=== PATIENT | female | born 1965 | race Caucasian/White ===

== ENCOUNTER → 2025-03-19 08:18 | Outpatient (BNVA) | payer MEDICAID, SELFPAY | PROVIDERS: Visit Provider Emergency Medicine | DX: B34.9 Viral infection, unspecified (principal) | CPT/HCPCS: 87400; 87426 ==

== ENCOUNTER 2025-05-20 15:47 | Outpatient (CLI) | payer MEDICAID, SELFPAY ==
--- NOTE | 2025-05-20 15:57 | CT_ITS ---
WS: [id number] CT ABDOMEN AND PELVIS WITH CONTRAST HISTORY: Lower abdominal pain, unspecified TECHNIQUE: Imaging performed of the abdomen and pelvis with IV contrast. Single phase imaging of the abdomen. Coronal and sagittal reformats are submitted. All CT scans at [facility] use at least one of these dose optimization techniques: automated exposure control; mA and/or kV adjustment per patient size (includes targeted exams where dose is matched to clinical indication); or iterative reconstruction. IV CONTRAST: Omnipaque 350; 100 mL IV. Oral contrast: Yes. DLP: 623.65 mGy.cm COMPARISON: None available. Lower thorax: Lung bases are clear. Heart is normal size. Small hiatal hernia. There is a small amount of oral contrast within the hernia. Liver/biliary system: Normal size with no intrahepatic dilatation. Gallbladder: Prior cholecystectomy. Pancreas: Moderate pancreatic atrophy. Normal pancreatic duct. Normal size common bile duct through the pancreatic head. Spleen: Small atrophic spleen. History of prior splenic surgery. Adrenal glands: Normal. Right kidney: Normal. Left kidney: Normal. Aorta: Mild atherosclerosis with no aneurysm. Lymphadenopathy: None. Free fluid: None. GI tract: Stomach is distended with food material. No small bowel obstruction. Marked fecal retention in the cecum and RIGHT colon. The appendix is not definitely identified. Tortuous distal colon with very slight wall thickening distally through the sigmoid colon. No acute inflammation. Anastomotic sutures are noted near the junction of the rectum and anus. No mass or obstruction. Abdominal wall: Supraumbilical abdominal wall hernias containing fat only. Pelvis: No free fluid or adenopathy within the pelvis. Prior hysterectomy. Bones: Mild increase in lumbar lordosis. Bilateral facet joint arthritis most significant L4-5 and L5-S1. CT/CT abdomen pelvis w con* [id number] IMPRESSION: 1. Prior cholecystectomy. 2. Unremarkable appearance of the anastomosis near the junction of the rectum and anus. 3. Mild circumferential colonic wall thickening through the sigmoid. There is no obstruction or acute inflammation. 4. Prior cholecystectomy. 5. Prior hysterectomy. 6. Fat-containing supraumbilical abdominal wall hernias. 7. Atrophic spleen. History of prior splenic surgery. Part of the spleen was p robably removed. 8. Moderate pancreatic atrophy.
[2025-05-20] MEDS: iohexol 350 mg/mL 500 mL Btl (per mL) PO (17:23)
[2025-05-20] MEDS: iohexol 350 mg/mL 500 mL Btl (per mL) IV (17:23)
== END 2025-05-20 15:48 | disposition home or self-care (01) ==
LOC: RAD 15:49
PROVIDERS: PCP Family Medicine; Visit Provider Family Medicine
DX: R10.30 Lower abdominal pain, unspecified (principal); Z90.49 Acquired absence of other specified parts of digestive tract; Z98.890 Other specified postprocedural states; R93.89 Abnormal findings on diagnostic imaging of other specified body structures; Z90.710 Acquired absence of both cervix and uterus; K43.9 Ventral hernia without obstruction or gangrene; D73.0 Hyposplenism; K86.89 Other specified diseases of pancreas; K44.9 Diaphragmatic hernia without obstruction or gangrene; I70.0 Atherosclerosis of aorta; M47.896 Other spondylosis, lumbar region; M47.897 Other spondylosis, lumbosacral region
CPT/HCPCS: 74177

== ENCOUNTER 2025-06-10 12:46 | Outpatient (CLI) | payer MEDICAID, SELFPAY ==
--- NOTE | 2025-06-10 12:51 | MM_ITS ---
WS: [id number] BILATERAL 3D TOMOSYNTHESIS DIGITAL SCREENING MAMMOGRAPHY WITH CAD CLINICAL INFORMATION: SCREENING HISTORY: Screening mammogram. No current complaints. COMPARISON: None available TECHNIQUE: Bilateral CC and MLO views. FINDINGS: Scattered fibroglandular densities bilaterally. No suspicious focal mass, asymmetry, calcifications, or architectural distortion. No evidence of malignancy. Lucent centered calcification RIGHT breast. Vascular calcification. MM/MM scr tomosynthesis [id number] IMPRESSION: DENSITY: There are scattered areas of fibroglandular density. BI-RADS: 2 - Benign. FOLLOW UP: 1 Year Follow-up Recommend return to annual screening mammography.
== END 2025-06-10 12:47 | disposition home or self-care (01) ==
LOC: RAD 12:48
PROVIDERS: PCP Family Medicine; Visit Provider Family Medicine
DX: Z12.31 Encounter for screening mammogram for malignant neoplasm of breast (principal); R92.323 Mammographic fibroglandular density, bilateral breasts; R92.1 Mammographic calcification found on diagnostic imaging of breast
CPT/HCPCS: 77063; 77067

== ENCOUNTER → 2025-07-16 12:52 | Outpatient (BNVA) | payer MEDICAID, SELFPAY | PROVIDERS: PCP Family Medicine; Visit Provider Orthopaedic Surgery | DX: M25.562 Pain in left knee (principal); M25.561 Pain in right knee; G89.29 Other chronic pain | CPT/HCPCS: 73560; 73565; 99204 ==